=== PATIENT | male | born 1995 | race American Indian/Alaskan Native ===

== ENCOUNTER 2016-12-07 23:19 | Emergency (ER) | payer OTHER ==
[2016-12-07] MEDS ORDERED: Bacitracin Oint 1 GM U/D Packet TOP ONE (23:44)
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
[2016-12-08 01:00] VITALS: BP 120/68
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
== END 2016-12-08 00:56 ==
LOC: MW.ED 23:19
DX: S01.81XA Laceration without foreign body of other part of head, initial encounter (principal); S00.83XA Contusion of other part of head, initial encounter; Y04.0XXA Assault by unarmed brawl or fight, initial encounter
CPT/HCPCS: 70450; 70450-26; 70486; 70486-26; 82962; 99282; 99285-25